=== PATIENT | female | born 1965 | race Caucasian/White ===

== ENCOUNTER 2018-03-10 14:23 | Outpatient (CLI) | payer BC ==
[~2018-03-10 14:23] MED LIST: AMBIEN10 MG ORAL; ASCORBIC ACID500 MG ORAL; BIOTIN800 MCG PO; CALCIUM 600 +1 EA10 PO; CITALOPRAM HBR20 M1 ORAL; COLACE100 MG ORAL; CYMBALTA20 MG ORAL; FISH OIL SOFTG1 EAC1 PO; GLUCOSAMINE &1 EAC2 PO; KLONOPIN1 MG ORAL; LINZESS145 MCG PO; MIRALAX17 G2 PO; MULTIVITAMINS1 EA11 ORAL; OXYCODON-ACETA1 EACH ORAL; PRILOSEC40 MG ORAL; SELENIUM50 MCG PO; VIT. C ORAL; ZOLOFT100 MG ORAL; ZOLPIDEM TARTRA10 MG ORAL
[2018-03-10 14:57] VITALS: BP 127/70
--- NOTE | 2018-03-11 10:20 | GI Initial Consult Note ---
History of Present Illness General Date patient seen: Mar 10, 2018 Time patient seen: 10:15 Referring physician: None Reason for Consultation: ESOPHAGEAL DYSMOTILITY Present Illness HPI 52 year female patient who presents today with complaint of possible esophageal dysmotility. She has c/o of food that feels like its "stuck" after eating. Denies any N/V. In addition, she has symptoms of GERD. She had recent colonoscopy done by Dr. Bairon Cline. Denies any unintentional weight loss or changes in dietary habits. No signs of abuse or neglect. Patient is not fall risk. Home Meds Reported Medications Duloxetine (Cymbalta) 20 Mg Cap, 20 MG ORAL DAILY, CAP 05/05/15 Oxycodone Hcl/Acetaminophen 2.5-325 (OXYCODON-ACETAMINOPHEN 2.5-325) 1 Each Tablet, 1 TAB ORAL Q4H, TAB 05/05/15 Sertraline Hcl* (ZOLOFT*) 100 Mg Tablet, 100 MG ORAL DAILY, TAB 05/05/15 Linaclotide (LINZESS) 145 Mcg Capsule, 145 MCG PO, CAP 09/20/13 Citalopram Hydrobromide* (CITALOPRAM HBR*) 20 Mg Tablet, 20 MG ORAL DAILY, TAB 06/07/13 Ascorbic Acid* (ASCORBIC ACID*) 500 Mg Tablet, 1000 MG ORAL DAILY 05/25/13 Docusate Sodium* (COLACE*) 100 Mg Capsule, 100 MG ORAL TWICE A DAY, CAP 05/25/13 Polyethylene Glycol 3350* (MIRALAX*) 17 Gm Powd.pack, 17 GM PO BEDTIME 05/25/13 Wildrose-3 Fatty Acids/Fish Oil (FISH OIL SOFTGEL) 1 Each Capsule, 1 EACH PO DAILY 03/31/13 Biotin (BIOTIN) 800 Mcg Tablet, 1000 MCG PO EVERY 2 HOURS 03/31/13 Gluc 2KCL/Chondr/Khanh Hy/Hy Ac (GLUCOSAMINE & CHONDROITIN CAP) 1 Each Capsule, 2 EACH PO DAILY 03/31/13 Selenium* (SELENIUM*) 50 Mcg Tab, 200 MCG PO DAILY 03/31/13 Calcium Carb/Vit D3/Minerals (CALCIUM 600 + D TABLET) 1 Each Tablet, 1 EACH PO DAILY 03/31/13 Multivitamin (MULTIVITAMINS) 1 Each Capsule, 1 CAP ORAL DAILY, #30 CAP 03/31/13 Omeprazole (PRILOSEC) 40 Mg Capsule., 40 MG ORAL DAILY 03/31/13 Clonazepam* (KLONOPIN*) 1 Mg Tablet, 1 MG ORAL NEEDED, #15 TAB 03/31/13 Zolpidem Tartrate* (AMBIEN*) 10 Mg Tablet, 10 MG ORAL NEEDED 03/31/13 Med list reviewed/reconciled: Yes Allergies: Coded Allergies: PENICILLINS (Verified Allergy, Severe, MOUTH SWELLING, 03/31/13) Patient History History Provided By: Patient PMH Narrative Depression Anxiety Past Surgical History: Hysterectomy Family History Narrative Father >> DM Mother >> Colon CA Social History: Reports: other; Denies: smoking, alcohol use, drug use Review of Systems All Other Systems: negative except mentioned in HPI Physical Exam Vital Signs Date Time Temp Pulse Resp B/P (MAP) Pulse Ox O2 Delivery O2 Flow Rate FiO2 03/10/18 14:57 98.1 80 127/70 98 98.1 Sp02 EP Interpretation: reviewed, normal General Appearance: well appearing, no apparent distress, alert Head: normocephalic EENT: PERRL/EOMI, normal ENT inspection Neck: supple Respiratory: normal breath sounds, no respiratory distress Cardiovascular: normal rate Gastrointestinal: normal inspection, non tender, soft, normal bowel sounds, non -distended Rectal: deferred Genitourinary: no CVA tenderness Musculoskeletal: normal inspection, back normal Neurologic: normal inspection, alert, oriented x3, responsive Psychiatric: normal inspection, judgement/insight normal, memory normal Skin: normal inspection, normal color, no rash, warm/dry, palpation normal, well hydrated Lymphatic: normal inspection, no adenopathy GI: Plan Problems: (1) Esophageal dysfunction (2) GERD (gastroesophageal reflux disease) (3) Constipation (4) Depression Plan ?esophageal dysfunction vs dysmotility, will consider GI procedures during next visit obtain endoscopy/colonoscopy records from Dr. Bairon Cline Rx Trulance Rx Omeprazole RTC after records obtained Seen with Dr. Valencia. Thank you for this patient referral. The patient was seen and examined at bedside and all new and available data was reviewed in the patients chart. I agree with the above findings, impression and plan. (Patient seen earlier today. Signature stamp does not reflect patient encounter time.). - MD Ambreen Wyatt,[place] MA[employer]GER [employer] MANAGEMENT Mar 11, 2018 10:20
== END 2018-03-10 14:55 | disposition home or self-care (01) ==
LOC: PAN 14:23
DX: K21.9 Gastro-esophageal reflux disease without esophagitis (principal); K59.00 Constipation, unspecified; F32.9 Major depressive disorder, single episode, unspecified; F41.9 Anxiety disorder, unspecified; Z88.0 Allergy status to penicillin; Z80.0 Family history of malignant neoplasm of digestive organs
CPT/HCPCS: 99201

== ENCOUNTER 2018-06-01 10:18 | Emergency (ER) | payer BC ==
[~2018-06-01] VITALS: Ht 167.6 cm; Wt 74.8 kg
[2018-06-01 10:23] VITALS: BP 113/72
[2018-06-01] MEDS ORDERED: Acetaminophen 500mg (ES) tab PO ONE (11:15)
[2018-06-01 11:48] LABS: APPEARANCE,URINE TURBID; BILIRUBIN, URINE NEGATIVE (NEGATIVE); COLOR,URINE PALE YELLOW; GLUCOSE, URINE (UA) NEGATIVE (NEGATIVE); KETONES,URINE NEGATIVE (NEGATIVE); LEUKOCYTE ESTERASE ,URINE NEGATIVE (NEGATIVE); NITRITE,URINE NEGATIVE (NEGATIVE); PH,URINE 6 (4.5-8.0); PROTEIN,URINE NEGATIVE (NEGATIVE); UROBILINOGEN,URINE NORMAL MG/DL (0.0-1.0)
--- NOTE | 2018-06-01 13:08 | Diagnostic Imaging Report ---
Indication: Back pain Technique: 3 views of the lumbar spine Comparison: None Findings: Bony alignment is normal. Vertebral body heights are preserved. Disc spaces are preserved. Pedicles are intact. There are early degenerative proliferative changes Impression: No acute process
--- NOTE | 2018-06-01 13:11 | Emergency Room Report ---
History of Present Illness General Chief Complaint: Lower Back Pain or Injury Source: Patient Present Illness HPI Patient presents with 3 days of increasing L lumbar pain. She has fibromyalgia but this pain is different. She does lift and assist people, but the onset was not with this. She rates pain at 10/10 - sharp and aching, worse with bending, twisting and moving her L hip. No fevers, chills, dysuria. She had trouble sleeping last night due to the pain. Usually she has pain bilaterally, more on R, but has not been this severe. Some constipation. Taking laxative. No blood thinners, weakness, incontinence, oncologic problems. No chest pain, cough, URI, rashes, other joint pain. Allergies: Coded Allergies: PENICILLINS (Verified Allergy, Severe, MOUTH SWELLING, 03/31/13) Patient History Past Medical History: see triage record, other - fibromyalgia Past Surgical History: other - see history Social History: Denies: smoking Social History Narrative at home - From [facility]. Home care Last Menstrual Period: n/a Now: No Reviewed Nursing Documentation: PMH: Agreed; PSxH: Agreed Nursing Documentation-PMH Hx Cancer: No Hx Gastrointestinal Problems: Yes Hx Neurological Problems: No Review of Systems All Other Systems: negative except mentioned in HPI Physical Exam Vital Signs Date Time Temp Pulse Resp B/P (MAP) Pulse Ox O2 Delivery O2 Flow Rate FiO2 06/01/18 10:23 97.6 83 20 113/72 98 Room Air 97.6 Sp02 EP Interpretation: reviewed, normal General Appearance: well appearing, no apparent distress, GCS 15, non-toxic Head: normocephalic Eyes: bilateral eye normal inspection, bilateral eye other - sylastic lenses ENT: moist mucus membranes Neck: supple Respiratory: lungs clear, normal breath sounds Cardiovascular #1: regular rate, rhythm Cardiovascular #2: 2+ radial (R) Gastrointestinal: normal inspection, normal bowel sounds, non tender, no mass, non-distended Musculoskeletal: gait/station normal, normal range of motion, pelvis stable, tender - L lower back with some muscle spasm. SLR bilat without nerve pain, but some increased pain in L lumbar area. Able to sit and stand without difficulty. No SI joint tenderness Neurologic: alert, oriented x3, motor strength/tone normal, DTRs symmetric, sensory intact Skin: normal inspection, warm/dry Medical Decision Making Diagnostic Impression: Primary Impression: Lumbar pain ER Course Patient with non-traumatic lumbar pain radiating to thigh on L. DDx: muscle spasm, strain, sciatica, DJD, UTI amongst others. Evaluation with UA and Xray. Treatment with Motrin and Tylenol. Lumbar films essentially normal. UA clear. Patient with improvement. Discussed findings with patient and need for follow up and possibly physical therapy. Patient stable for outpatient observation and treatment. Laboratory Tests Test 06/01/18 11:30 Urine Color Pale yellow Urine Appearance Turbid Urine pH 6 (4.5-8.0) Urine Specific [place] 1.010 (1.005-1.035) Urine Protein Negative (NEGATIVE) Urine Glucose (UA) Negative (NEGATIVE) Urine Ketones Negative (NEGATIVE) Urine Blood Negative (NEGATIVE) Urine Nitrite Negative (NEGATIVE) Urine Bilirubin Negative (NEGATIVE) Urine Urobilinogen Normal MG/DL (0.0-1.0) Urine Leukocyte Esterase Negative (NEGATIVE) Urine RBC 0-2 /HPF (0 - 2) Urine WBC 0-2 /HPF (0 - 2) Urine Squamous Epithelial Cells Moderate /LPF (NONE/OCC) H Urine Bacteria Few /HPF (NONE) Other X-Ray Diagnostic Results Other X-Ray Diagnostic Results : X-Ray ordered: l/s films # of Views/Limited Vs Complete: 3 View Indication: Pain Interpretation: no dislocation, no soft tissue swelling, no fractures, other - Some degenerative changes Impression: Other Electronically Signed by: Electronically signed by Rajesh Altamirano MD Last Vital Signs Date Time Temp Pulse Resp B/P (MAP) Pulse Ox O2 Delivery O2 Flow Rate FiO2 06/01/18 13:15 98.2 83 20 113/72 98 Room Air 98.2 Status: improved Disposition: HOME, SELF-CARE Condition: Improved Scripts Acetaminophen (Tylenol) 325 Mg Tablet 650 MG ORAL Q6H PRN for Prn Pain/Headache/Temp > 101, #20 TAB 0 Refills Prov: Rajesh Altamirano M.D. 06/01/18 Tramadol Hcl* (ULTRAM*) 50 Mg Tablet 50 MG ORAL Q6H PRN for For Pain, #10 TAB 0 Refills Prov: Rajesh Altamirano M.D. 06/01/18 Ibuprofen* (MOTRIN*) 600 Mg Tablet 600 MG ORAL Q6H PRN for For Pain, #20 TAB Prov: Rajesh Altamirano M.D. 06/01/18 Referrals: Rajesh Kingston MD (PCP) Rajesh Altamirano M.D. Jun 01, 2018 13:11
[2018-06-01 13:15] VITALS: BP 113/72
[2018-06-01] MEDS ORDERED: IBUPROFEN600 MG ORAL (13:15)
[2018-06-01] MEDS ORDERED: TRAMADOL HCL50 MG ORAL (13:15)
[2018-06-01] MEDS ORDERED: TYLENOL325 MG ORAL (13:15)
== END 2018-06-01 13:15 | disposition home or self-care (01) ==
LOC: EMR 11:15
DX: M54.5 Low back pain (principal); M79.7 Fibromyalgia; Z88.0 Allergy status to penicillin
CPT/HCPCS: 72020; 81001; 99283

== ENCOUNTER 2019-04-06 13:27 | Outpatient (CLI) | payer BC ==
[~2019-04-06 13:27] MED LIST changes: +IBUPROFEN600 MG ORAL; +TRAMADOL HCL50 MG ORAL; +TYLENOL325 MG ORAL
[2019-04-06 13:40] VITALS: BP 115/71
[2019-04-06] MEDS ORDERED: GABAPENTIN100 MG ORAL (16:37)
[2019-04-06] MEDS ORDERED: NAPROXEN500 M2 ORAL (16:37)
[2019-04-06] MEDS ORDERED: BUPROPION XL150 MG ORAL (16:37)
[2019-04-06] MEDS ORDERED: LEXAPRO10 MG ORAL (16:37)
--- NOTE | 2019-04-06 21:00 | Consultation ---
DATE OF CONSULTATION: 04/06/2019 CONSULTING PHYSICIAN: Demetris Valencia M.D. CHIEF COMPLAINT: Chronic GERD, constipation, referral for colonoscopy. HISTORY OF PRESENT ILLNESS: This is a very pleasant 53-year-old female, who was referred to us for chronic GERD, history of colonic polyps. Last colonoscopy was done in 2016 by another GI doctor. We got the report. Unfortunately, the prep was poor. The patient had two polyps and recommendation from another GI doctor was the patient to get a colonoscopy within a year, but now it has been already over three years. PAST MEDICAL HISTORY: History of depression, history of colonic polyp. MEDICATIONS: Please see medication reconciliation list. SOCIAL HISTORY: The patient denies any tobacco, alcohol, or drug abuse. FAMILY HISTORY: Noncontributory. REVIEW OF SYSTEMS: A 10-point review of systems was performed and was positive for GERD and constipation. PHYSICAL EXAMINATION: VITAL SIGNS: Temperature 97.8, blood pressure is 115/71, pulse is 66, respirations 20. HEENT: Normocephalic and atraumatic. Sclerae anicteric. NECK: Supple. No evidence of obvious lymphadenopathy. CARDIOVASCULAR: Regular rate and rhythm. Plus S1 and S2. No obvious murmur. LUNGS: Clear to auscultation bilaterally. ABDOMEN: Positive bowel sounds. Soft, nontender. No rebound. No guarding. No peritoneal sign. EXTREMITIES: No cyanosis. No clubbing. No edema. ASSESSMENT AND PLAN: This is a 53-year-old female: 1. Colonic polyps. Plan to do another colonoscopy. The patient had a colonoscopy in 2016 3 years. Last colonoscopy was not clean. The patient had 2 polyps. The recommendation from other GI was to in a year, but again given the prep was poor and the patient already had 2 polyps, we recommend getting another colonoscopy. The patient was given instruction and preparation for colonoscopy pending authorization. 2. Chronic GERD. The patient was given a PPI trial and we will follow. We will see how she responds to that. Demetris Valencia M.D. DR: GALA JOB#: [id number] CC:
== END 2019-04-06 15:39 | disposition home or self-care (01) ==
LOC: PAN 13:27
DX: K21.9 Gastro-esophageal reflux disease without esophagitis (principal); K59.00 Constipation, unspecified; Z86.010 Personal history of colon polyps; F32.9 Major depressive disorder, single episode, unspecified
CPT/HCPCS: 99212

== ENCOUNTER 2019-05-12 07:57 | Day surgery (SDC) | payer BC ==
[~2019-05-12] VITALS: Ht 167.6 cm; Wt 75.7 kg
[2019-05-12] VITALS (10 sets, daily range): BP systolic 104–123; BP diastolic 59–72
[~2019-05-12 07:57] MED LIST changes: +BUPROPION XL150 MG ORAL; +GABAPENTIN100 MG ORAL; +LEXAPRO10 MG ORAL; +NAPROXEN500 M2 ORAL
--- NOTE | 2019-05-12 08:40 | Anethesia Preoperative Eval ---
Anesthesia Pre-op PMH/ROS General Date of Evaluation: May 12, 2019 Time of Evaluation: 09:11 Anesthesiologist: Lynn Rios CRNA ASA Score: ASA 2 Mallampati Score Class I : Soft palate, uvula, fauces, pillars visible Class II: Soft palate, uvula, fauces visible Class III: Soft palate, base of uvula visible Class IV: Only hard plate visible Mallampati Classification: Class II Surgeon: Annie Diagnosis: Colon polyps Surgical Procedure: Colonoscopy Anesthesia History: none Family History: no anesthesia problems Allergies: Coded Allergies: PENICILLINS (Verified Allergy, Severe, MOUTH SWELLING, 03/31/13) Medications: see eMAR Patient NPO?: Yes NPO Date: May 12, 2019 NPO Time: 00:00 Past Medical History Cardiovascular: Denies: HTN, CAD, [place], valve dz, arrhythmia, other Pulmonary: Denies: asthma, COPD, RACQUEL, other Gastrointestinal/Genitourinary: Reports: other - colon polyps; Denies: GERD, CRI, ESRD Neurologic/Psychiatric: Reports: depression/anxiety, other - fibromyalgia; Denies: dementia, CVA, TIA Endocrine: Denies: DM, hypothyroidism, steroids, other HEENT: Denies: cataract (L), cataract (R), glaucoma, NIKOLAI (L), NIKOLAI (R), other Hematology/Immune: Denies: anemia, DVT, bleeding disorder, other Musculoskeletal/Integumentary: Reports: OA; Denies: RA, DJD, DDD, edema, other PMH Narrative: as noted above PSxH Narrative: see nursing notes Anesthesia Pre-op Phys. Exam Physician Exam Last 24 Hour Vital Signs Date Time Temp Pulse Resp B/P (MAP) Pulse Ox O2 Delivery O2 Flow Rate FiO2 05/12/19 09:19 Room Air 05/12/19 09:00 97.6 58 20 104/59 97 Room Air Constitutional: NAD Neurologic: other - alert and oriented Cardiovascular: RRR Respiratory: CTA Gastrointestinal: S/NT/ND Airway Exam Mallampati Score: Class II MO: full Neck: FROM TMD: > 3 FB Teeth: intact Dentures: no upper, no lower Anesthesia Pre-op A/P Risk Assessment & Plan Assessment: ASA 2, ok to proceed Plan: MAC Status Change Before Surgery: No Pre-Antibiotics Given Within 1 Hr of Incision: Lynn Sctot CRNA May 12, 2019 08:40
[2019-05-12] MEDS ORDERED: Midazolam 2mg/2ml Inj ONE (08:56)
[2019-05-12] MEDS ORDERED: fentaNYL 100 mcg/2 mL IV ONE (08:57)
[2019-05-12] MEDS ORDERED: Propofol 200mg/20ml IV ONE (09:00)
[2019-05-12] MEDS ORDERED: BUPROPION HCL200 MG PO (09:08)
[2019-05-12] MEDS ORDERED: RELAFEN500 MG PO (09:08)
[2019-05-12] MEDS ORDERED: BIOTIN2500 MCG PO (09:08)
--- NOTE | 2019-05-12 09:18 | Pre-Procedure Note/Attestation ---
Pre-Procedure Note/Attestation Complete Prior to Procedure Planned Procedure: not applicable Procedure Narrative: colonoscopy Indications for Procedure Pre-Operative Diagnosis: h/o colon polyps Attestation I attest that I discussed the nature of the procedure; its benefits; risks and complications; and alternatives (and the risks and benefits of such alternatives ), prior to the procedure, with the patient (or the patient's legal factory representative). I attest that, if there was a reasonable possibility of needing a blood transfusion, the patient (or the patient's legal factory representative) was given the [facility] standardized written summary, pursuant to the Jeremy Tibbie Blood Safety Act ([place] Health and Safety Code # 1645, as amended). I attest that I re-evaluated the patient just prior to the surgery and that there has been no change in the patient's H&P, except as documented below: Demetris Valencia MD May 12, 2019 09:18
--- NOTE | 2019-05-12 09:19 | Short Stay Surgery H&P ---
History of Present Illness History of Present Illness Chief Complaint colon polyps HPI Aurora Dwyer is a 54 year old female who was admitted on for Colonic Polyps Patient History Allergies: Coded Allergies: PENICILLINS (Verified Allergy, Severe, MOUTH SWELLING, 03/31/13) PAST MEDICAL HISTORY: (1) Esophageal dysfunction (2) GERD (gastroesophageal reflux disease) (3) Depression (4) Constipation (5) UTI (urinary tract infection) (6) Suicidal ideation (7) Suicidal ideation Medication History Scheduled Escitalopram Oxalate* (Lexapro*), 5 MG ORAL DAILY, (Reported) Gabapentin* (Gabapentin*), Unknown Dose ORAL THREE TIMES A DAY, (Reported) Nabumetone (Nabumetone), 500 MG PO da, (Reported) Naproxen* (Naproxen*), 500 MG ORAL TWICE A DAY, (Reported) Miscellaneous Medications Biotin (Biotin), 5,000 MCG PO, (Reported) Bupropion Hcl (Bupropion Hcl Sr), 200 MG PO, (Reported) Discontinued Medications Zolpidem Tartrate* (Ambien*), 10 MG ORAL NEEDED, (Reported) Discontinued Reason: Pt stopped taking med Review of Systems Cardiovascular: Reports: no symptoms Respiratory: Reports: no symptoms Skeletal: Reports: no symptoms Gastrointestinal: Reports: no symptoms Genitourinary: Reports: no symptoms Neurologic: Reports: no symptoms Endocrine: Reports: no symptoms Hematologic: Reports: no symptoms Physical Exam Skin: normal HENT: normal Heart: normal Lungs: normal Abdomen: normal Extremities: normal Plan Plan of Care colonoscopy Attestation Are the patient's medical conditions optimized for surgery? Attestation Response: yes Demetris Valencia MD May 12, 2019 09:19
--- NOTE | 2019-05-12 09:34 | Immediate Post-Op Evaluation ---
Immediate Post-Op Evalulation Immediate Post-Op Evalulation Procedure: Colonoscopy Date of Evaluation: May 12, 2019 Time of Evaluation: 09:45 IV Fluids: 0.9 NS 200 ml Blood Pressure Systolic: 123 Blood Pressure Diastolic: 64 Pulse Rate: 59 Respiratory Rate: 12 O2 Sat by Pulse Oximetry: 99 Temperature (Fahrenheit): 97.3 Pain Score (1-10): 0 Nausea: No Vomiting: No Complications none Patient Status: awake, patent Hydration Status: adequate Given Within 1 Hr of Incision: Lynn Scott CRNA May 12, 2019 09:34
--- NOTE | 2019-05-12 09:40 | Endoscopy Procedure Note ---
Endoscopy Procedure Note General Indication for Procedure: screening Procedures Performed: colonoscopy Operative Findings/Diagnosis: 2 polyps Specimen: yes Pt Tolerated Procedure Well: Yes Estimated Blood Loss: none Anesthesia Anesthesiologist: chanelle Anesthesia: MAC Inserted Devices Implant(s) used?: No Quality Quality of Bowel Preparation: Excellent Did scope reach the cecum?: Yes Was there any complications?: No GI Core Measures 50 yrs or older w/o bx or poly: No 10yrs. F/U recommended: Yes If not recommended, why?: Above average risk 18 years or older w/prev. colo: Yes <3yrs. since last colonoscopy: No Demetris Valencia MD May 12, 2019 09:40
--- NOTE | 2019-05-12 12:39 | 48 Hour Post Anesthesia Eval ---
Post Anesthesia Evaluation Procedure: Colonoscopy Date of Evaluation: May 12, 2019 Time of Evaluation: 12:37 Blood Pressure Systolic: 121 0: 72 Pulse Rate: 56 Respiratory Rate: 15 Temperature (Fahrenheit): 97.5 O2 Sat by Pulse Oximetry: 97 Airway: patent Nausea: No Vomiting: No Pain Intensity: 0 Hydration Status: adequate Cardiopulmonary Status: stable Mental Status/LOC: patient returned to baseline Follow-up Care/Observations: per GI Post-Anesthesia Complications: none Follow-up care needed: N/A Lynn Rios CRNA May 12, 2019 12:39
--- NOTE | 2019-05-12 14:30 | Procedure Note ---
DATE OF PROCEDURE: 05/12/2019 SURGEON: Demetris Valencia M.D. PROCEDURE: Colonoscopy with biopsy. ANESTHESIA: Per Lynn PHILIP. INSTRUMENT: Olympus adult flexible colonoscope. INDICATIONS: Screening colonoscopy, history of colonic polyps. REASON FOR PROCEDURE: The procedure, risks, benefits, and possible consequences, including hemorrhage, aspiration, perforation and infection, and alternative treatments, were explained to the patient/legal guardian by Dr. Demetris Valencia and the patient/legal guardian understood and accepted these risks. DESCRIPTION OF PROCEDURE: After informed consent was obtained and the patient was adequately sedated, first rectal exam was performed, which was positive for internal hemorrhoids. Then, the scope was advanced from rectum into the cecum, documented by appendiceal orifice, ileocecal valve, and right upper quadrant palpation. Quality of prep was very good. The patient had two diminutive polyps in the rectosigmoid area, which was biopsied with the cold biopsy forceps technique. Retroflexion of rectum showed evidence of medium-sized internal hemorrhoids. The rest of the colonoscopy examination was grossly within normal limit. SUMMARY OF FINDINGS: 1. Two hyperplastic-looking polyps in the rectosigmoid area, status post biopsy. 2. Internal hemorrhoids. RECOMMENDATIONS: Follow up pathology. Recommended repeat colonoscopy in five years. Demetris Valencia M.D. DR: EAGLE JOB#: [id number] CC:
== END 2019-05-12 11:05 | disposition home or self-care (01) ==
LOC: GAS 07:57
DX: Z12.11 Encounter for screening for malignant neoplasm of colon (principal); Z86.010 Personal history of colon polyps; K63.5 Polyp of colon; K64.8 Other hemorrhoids; K21.9 Gastro-esophageal reflux disease without esophagitis; Z79.899 Other long term (current) drug therapy; Z88.0 Allergy status to penicillin; M79.7 Fibromyalgia; M19.90 Unspecified osteoarthritis, unspecified site
CPT/HCPCS: 45380; J2250; J2704; J3010; 94003; 94150

== ENCOUNTER 2019-06-19 14:38 | Outpatient (CLI) | payer BC ==
[~2019-06-19 14:38] MED LIST changes: +BIOTIN2500 MCG PO; +BUPROPION HCL200 MG PO; +RELAFEN500 MG PO
[2019-06-19 14:41] VITALS: BP 119/76
--- NOTE | 2019-06-19 14:59 | General Progress Note ---
Assessment/Plan Problem List: (1) Esophageal dysfunction ICD Codes: K22.4 - Dyskinesia of esophagus SNOMED: 545032325 (2) GERD (gastroesophageal reflux disease) ICD Codes: K21.9 - Gastro-esophageal reflux disease without esophagitis SNOMED: 873605256 (3) UTI (urinary tract infection) ICD Codes: N39.0 - Urinary tract infection, site not specified SNOMED: 90031740 (4) Depression ICD Codes: F32.9 - Major depressive disorder, single episode, unspecified SNOMED: 89175514 (5) Constipation ICD Codes: K59.00 - Constipation, unspecified SNOMED: 68985321 Assessment/Plan: colonoscopy reviewed patient c/o severe GERD and reflux plan trial of Omeprazole EGD if no improvement Subjective ROS Limited/Unobtainable: Yes Allergies: Coded Allergies: PENICILLINS (Verified Allergy, Severe, MOUTH SWELLING, 03/31/13) Objective General Appearance: alert EENT: normal ENT inspection Neck: supple Cardiovascular: normal rate Respiratory/Chest: lungs clear Abdomen: normal bowel sounds, non tender, soft Extremities: non-tender Demetris Valencia MD Jun 19, 2019 14:59
== END 2019-06-19 15:51 | disposition home or self-care (01) ==
LOC: PAN 14:38
DX: K22.4 Dyskinesia of esophagus (principal); K21.9 Gastro-esophageal reflux disease without esophagitis; N39.0 Urinary tract infection, site not specified; F32.9 Major depressive disorder, single episode, unspecified; K59.00 Constipation, unspecified; Z88.0 Allergy status to penicillin